=== PATIENT | male | born 1940 | race Caucasian/White ===

== ENCOUNTER 2020-05-20 05:46 | Day surgery (SDC) | payer MEDICARE, MEDICAID ==
[2020-05-13 10:52] LABS: BASOPHILS # (AUTO) 0.1 X10'3 (0-0.2); BASOPHILS % (AUTO) 0.9 % (0-1); EOSINOPHILS # (AUTO) 0.1 X10'3 (0-0.9); EOSINOPHILS % (AUTO) 0.8 % (0-6); LYMPHOCYTES # (AUTO) 2.1 X10'3 (1.1-4.8); LYMPHOCYTES % (AUTO) 22.8 % (21-51); MEAN CORPUSCULAR HEMOGLOBIN 30.5 PG (27.0-31.0); MEAN CORPUSCULAR HGB CONC 34.3 g/dL (33.0-36.5); MEAN CORPUSCULAR VOLUME 88.9 FL (78-98); MONOCYTES # (AUTO) 0.6 X10'3 (0-0.9); MONOCYTES % (AUTO) 7.1 % (2-12); NEUTROPHILS # (AUTO) 6.3 X10'3 (1.8-7.7); NEUTROPHILS % (AUTO) 68.4 % (42-75); PRE OP HEMOGLOBIN 16.1 g/dL (14.0-17.9); PRE OP PLATELET COUNT 229 X10'3 (140-440); RED BLOOD COUNT 5.29 X10'6 (4.70-6.10); RED CELL DISTRIBUTION WIDTH 13.6 % (11.5-14.5)
[2020-05-13 11:04] LABS: PRE OP PROTIME 9.8 SECONDS (9.0-12.0)
[2020-05-13 11:06] LABS: ALKALINE PHOSPHATASE 70 IU/L (46-116); BLOOD UREA NITROGEN 15 MG/DL (7-18); CALCIUM 9.3 MG/DL (8.5-10.1); CHLORIDE 103 MMOL/L (99-107); CREATININE 1.36 MG/DL (0.60-1.10); PRE OP ALT 33 U/L (30-65); PRE OP ANION GAP 7 (8-16); PRE OP AST 17 U/L (10-37); PRE OP BILIRUB, TOTAL 0.6 MG/DL (0.0-1.0); PRE OP GLUCOSE 197 MG/DL (70-104); PRE OP POTASSIUM 4.1 MMOL/L (3.4-5.1); PRE OP SODIUM 139 MMOL/L (135-145); TOTAL CARBON DIOXIDE 28.9 MMOL/L (24-32); TOTAL PROTEIN 7.9 G/DL (6.4-8.2); eGFR 51 ML/MIN
[~2020-05-20] VITALS: Ht 177.8 cm; Wt 102.1 kg
[~2020-05-20 05:46] MED LIST: DIGO-31 PO; ESOM40CA54 PO; HYDR-3972 PO; INSU100V5 SQ; LANTUS SQ; LUBI24CA5 PO; NIA500ERT PO; SITA100T11 PO; ceFAZolin 2gm in dextrose, iso 50 ML IV ONE; famotidine 20mg tablet PO ONE; ringers solution, lacted 1,000 ML IV SCH
[2020-05-20 06:40] VITALS: BP 149/72
[2020-05-20] MEDS ORDERED: BUPIVAcaine/PF 2.5mg/ml (0.25%) 10ml vial ONE (06:57)
[2020-05-20] MEDS ORDERED: labetalol 20mg/4ml (5mg/ml) syringe IV PRN (07:35)
[2020-05-20] MEDS ORDERED: ringers solution, lacted 1,000 ML IV SCH (07:35)
[2020-05-20] MEDS ORDERED: hydrALAZINE 20mg/ml inj. IV PRN (07:35)
[2020-05-20] MEDS ORDERED: fentaNYL/PF 50MCG/1 ML 2ML syringe IV PRN ×2 (07:35)
[2020-05-20] MEDS ORDERED: morphine 2 MG/ML inj. syringe IV PRN (07:35)
[2020-05-20] MEDS ORDERED: ondansetron/PF 4mg/2ml inj IV PRN (07:35)
[2020-05-20] MEDS ORDERED: LIDOcaine 0.5% (5mg/ml) 50ml vial ONE (07:39)
[2020-05-20] MEDS ORDERED: MIDAZolam 1mg/ml 10ml vial ONE (09:35)
[2020-05-20] MEDS ORDERED: fentaNYL/PF 50MCG/1 ML 2ML syringe ONE (09:35)
[2020-05-20] MEDS ORDERED: ROPIVAcaine 0.5% (5mg/ml) 30ml vial ONE (10:00)
[2020-05-20 10:31] VITALS: BP 136/74
--- NOTE | 2020-05-20 10:31 | NUR ---
Received from OR via , accompanied by Anesthesiologist DR SHUKLA and report given by Anesthesiolgist. AWAKENS TO VOICE. VITALS STABLE. DRESSING/SPLINT DI. FINGERS COOL AND PINK. ARAM PAIN.
[2020-05-20 10:41] VITALS: BP 126/66
[2020-05-20 10:51] VITALS: BP 124/72
[2020-05-20 11:01] VITALS: BP 128/68
--- NOTE | 2020-05-20 11:11 | NUR ---
AWAKE AND ORIENTED. VITALS STABLE. SPLINT DI ARAM PAIN. HOME WITH HIS AT THIS TIME.
== END 2020-05-20 11:11 | disposition home or self-care (01) ==
LOC: PAS 05:46
PROVIDERS: ATTEND Orthopaedic Surgery Hand Surgery
DX: M18.12 Unilateral primary osteoarthritis of first carpometacarpal joint, left hand (principal); Z20.828 Contact with and (suspected) exposure to other viral communicable diseases; I48.91 Unspecified atrial fibrillation; K21.9 Gastro-esophageal reflux disease without esophagitis; G20 Parkinson's disease; E11.9 Type 2 diabetes mellitus without complications; G89.29 Other chronic pain; M19.012 Primary osteoarthritis, left shoulder; Z91.018 Allergy to other foods; Z88.8 Allergy status to other drugs, medicaments and biological substances; Z87.891 Personal history of nicotine dependence; Z98.890 Other specified postprocedural states; Z79.4 Long term (current) use of insulin; Z79.899 Other long term (current) drug therapy
CPT/HCPCS: 25310; 25447; 36415; 80053; 82948; 85025; 85610; 85730; 87635; 93005; A6222; J2001; J2250; J3010; J3490; J7120; A4215; A4618; A6449; A7000; J2795